=== PATIENT | male | born 1985 | race African-American/Black ===

== ENCOUNTER 2020-12-10 17:05 | Inpatient (IN) | payer OTHER ==
[~2020-12-10] VITALS: Ht 182.9 cm; Wt 114.8 kg
[2020-12-10] MEDS ORDERED: DexAMETHasone SOD PHOS 10MG/1ML VIAL INJ IV ONE (17:45)
[2020-12-10] MEDS ORDERED: cefTRIAXone 1GM/50ML D5W 50 ML IV ONE (17:45)
[2020-12-10] MEDS ORDERED: ACETAMINOPHEN 650 mg PER 20.3 mL UD PO ONE (18:00)
[2020-12-10 18:10] LABS: Basophils # (auto) 0 10 ^3/uL (0-0.2); Basophils % (auto) 0.3 % (0.0-2.0); Eosinophils # (auto) 0 10 ^3/uL (0-0.8); Hematocrit 42.9 % (41.0-53.0); Hemoglobin 14.3 g/dL (13.5-17.5); Lymphocytes # (auto) 1.5 10 ^3/uL (0.4-5.4); Lymphocytes % (auto) 15.8 % (10.0-50.0); Mean Corpuscular Hemoglobin 28.5 pg (28.0-32.0); Mean Corpuscular Hgb Conc. 33.3 g/dL (32.0-36.0); Mean Corpuscular Volume 85.7 fL (80.0-100.0); Monocytes # (auto) 0.5 10 ^3/uL (0-1.3); Monocytes % (auto) 5.3 % (0.0-12.0); Neutrophils # (auto) 7.3 10 ^3/uL (1.6-8.6); Neutrophils % (auto) 78.6 % (37.0-80.0); Nucleated Red Blood Cells % 0.1 %; Red Blood Cells 5.01 10^6/uL (4.5-5.90); Red Cell Distribution Width 15.9 % (11.8-14.3); White Blood Cell 9.4 10^3/uL (4.4-10.8)
[2020-12-10 18:19] LABS: Calcium 8.1 mg/dL (8.5-10.1); Chloride 93 mmol/L (98-107); Sodium 131 mmol/L (136-145)
[2020-12-10 18:27] LABS: Alanine Aminotransferase 47 U/L (16-61); Albumin 3.2 g/dL (3.4-5.0); Alkaline Phosphatase 49 U/L (45-117); Anion Gap 9 (5-15); Aspartate Aminotransferase 72 U/L (15-37); BUN/Creatinine Ratio 7.7; Bilirubin, Total 0.8 mg/dL (0.2-1.0); Blood Urea Nitrogen 11 mg/dL (7-18); Carbon Dioxide 29 mmol/L (21-32); GFR African American 72 mL/min; GFR Non-African American 59 mL/min; Glucose 149 mg/dL (74-106); Total Protein 7.9 g/dL (6.4-8.2)
[2020-12-10 18:33] LABS: Potassium 2.8 mmol/L (3.5-5.1)
[2020-12-10] MEDS ORDERED: POTASSIUM CHL 20 Meq TABLET PO ONE (19:00)
[2020-12-10] MEDS ORDERED: ACETAMINOPHEN 325 MG TAB PO ONE (19:15)
[2020-12-10 20:33] LABS: Urine Bacteria NONE SEEN /hpf (None Seen); Urine Blood 2+ /uL (Negative); Urine Specific Gravity 1.009 (1.001-1.035); Urine WBC 2 /hpf (0 - 3)
[2020-12-10] MEDS ORDERED: NITROGLYCERIN 0.4 MG SL TAB SL PRN (21:30)
[2020-12-10] MEDS ORDERED: SODIUM CHLORIDE 0.9% 500 ML IV ONE (21:30)
[2020-12-10] MEDS ORDERED: MORPHINE SULFATE INJECTION 2 MG/ML SYRG IV PRN (21:30)
[2020-12-10] MEDS ORDERED: AZITHROMYCIN 500MG/ 250ML 250 ML IV ONE (21:30)
[2020-12-10] MEDS ORDERED: ONDANSETRON HCL 4 MG/2 ML VIAL IV PRN (21:30)
[2020-12-10] MEDS ORDERED: TEMAZEPAM 15 MG CAP PO PRN (21:30)
[2020-12-10] MEDS: SODIUM CHLORIDE 0.9% 1,000 ML IV SCH (22:00)
[2020-12-10] MEDS: ENOXAPARIN SOD 40 MG/0.4 ML SYRINGE SC SCH (22:05)
[2020-12-10 22:15] LABS: Magnesium 2.6 mg/dL (1.6-2.6)
[2020-12-10 22:24] LABS: CRP High Sensitivity 14.4 mg/dL (< 0.3)
[2020-12-11 00:52] VITALS: BP 130/52
[2020-12-11 05:19] LABS: Basophils # (auto) 0.1 10 ^3/uL (0-0.2); Basophils % (auto) 0.5 % (0.0-2.0); Eosinophils # (auto) 0 10 ^3/uL (0-0.8); Hematocrit 45.5 % (41.0-53.0); Hemoglobin 15.4 g/dL (13.5-17.5); Lymphocytes # (auto) 1.4 10 ^3/uL (0.4-5.4); Mean Corpuscular Hemoglobin 29.3 pg (28.0-32.0); Mean Corpuscular Hgb Conc. 33.8 g/dL (32.0-36.0); Mean Corpuscular Volume 86.7 fL (80.0-100.0); Monocytes # (auto) 0.5 10 ^3/uL (0-1.3); Monocytes % (auto) 4.1 % (0.0-12.0); Neutrophils # (auto) 9.6 10 ^3/uL (1.6-8.6); Neutrophils % (auto) 83.4 % (37.0-80.0); Red Blood Cells 5.25 10^6/uL (4.5-5.90); White Blood Cell 11.5 10^3/uL (4.4-10.8)
[2020-12-11 06:01] LABS: Albumin 3.4 g/dL (3.4-5.0); BUN/Creatinine Ratio 8.4; Bilirubin, Total 0.6 mg/dL (0.2-1.0); Calcium 9.1 mg/dL (8.5-10.1); Potassium 4.2 mmol/L (3.5-5.1); Total Protein 8.7 g/dL (6.4-8.2)
[2020-12-11] MEDS: DexAMETHasone SOD PHOS 10MG/1ML VIAL INJ IV SCH (09:37)
[2020-12-11] MEDS: ZINC SULFATE 220mg CAP or TAB PO SCH (09:37)
[2020-12-11] MEDS: CHOLECALCIFEROL (VITD3) 2,000 UNIT CAP/TAB PO SCH (09:38)
[2020-12-11] MEDS: ENOXAPARIN SOD 40 MG/0.4 ML SYRINGE SC SCH (09:38)
[2020-12-11] MEDS: ASCORBIC ACID 1,000 MG TAB PO SCH (09:38)
[2020-12-11] MEDS ORDERED: PANTOPRAZOLE 40 MG TAB PO SCH (10:00)
[2020-12-11] MEDS: ACETAMINOPHEN 500 MG TAB PO PRN (10:44)
[2020-12-11] MEDS: ALBUTEROL SULF HFA 90MCG INH 200DOSE IN PRN ×2 (11:06→21:16)
[2020-12-11] MEDS: SODIUM CHLORIDE 0.9% 1,000 ML IV SCH (11:09)
[2020-12-11] MEDS ORDERED: FAMOTIDINE (10MG/ML) 2ML VL IV ONE ×2 (16:00→17:02)
[2020-12-11] MEDS ORDERED: ENOXAPARIN SOD 80 MG/0.8ML SYRINGE SC ONE (16:15)
[2020-12-11] MEDS ORDERED: REMDESIVIR PER PHARMACY 0 ML IV SCH (16:15)
[2020-12-11] MEDS ORDERED: DOXYCYCLINE 100MG/250ML 250 ML IV ONE ×2 (16:15→17:01)
[2020-12-11] MEDS ORDERED: FUROSEMIDE 20 MG/2 ML VIAL IV ONE (16:15)
[2020-12-11] MEDS ORDERED: FUROSEMIDE 20 MG/2 ML VIAL ONE (17:00)
[2020-12-11] MEDS ORDERED: REMDESIVIR 200 MG in NS 210ml LOADING DOSE ADULT IV ONE (18:00)
[2020-12-11 18:13] LABS: Basophils # (auto) 0 10 ^3/uL (0-0.2); Basophils % (auto) 0.1 % (0.0-2.0); Eosinophils # (auto) 0 10 ^3/uL (0-0.8); Hematocrit 43.3 % (41.0-53.0); Hemoglobin 14.1 g/dL (13.5-17.5); Lymphocytes # (auto) 1.1 10 ^3/uL (0.4-5.4); Mean Corpuscular Hemoglobin 28.2 pg (28.0-32.0); Mean Corpuscular Hgb Conc. 32.5 g/dL (32.0-36.0); Mean Corpuscular Volume 86.7 fL (80.0-100.0); Monocytes # (auto) 0.3 10 ^3/uL (0-1.3); Monocytes % (auto) 2.3 % (0.0-12.0); Neutrophils # (auto) 12.8 10 ^3/uL (1.6-8.6); Neutrophils % (auto) 89.6 % (37.0-80.0); Nucleated Red Blood Cells % 0.1 %; Red Cell Distribution Width 15.7 % (11.8-14.3); White Blood Cell 14.3 10^3/uL (4.4-10.8)
[2020-12-11 18:31] LABS: Albumin 2.9 g/dL (3.4-5.0); Calcium 8.8 mg/dL (8.5-10.1); Potassium 3.5 mmol/L (3.5-5.1)
[2020-12-11 18:39] LABS: BUN/Creatinine Ratio 12.3; Bilirubin, Total 0.7 mg/dL (0.2-1.0); CRP High Sensitivity 18.2 mg/dL (< 0.3)
[2020-12-11 18:42] LABS: Thyroid Stimulating Hormone 0.66 uIU/mL (0.358-3.74)
[2020-12-11] MEDS ORDERED: TOCILIZUMAB 400 MG in SODIUM CHL 0.9% 80 ML IV SCH (22:00)
[2020-12-11] MEDS ORDERED: AZITHROMYCIN 500MG/ 250ML 250 ML IV SCH (22:00)
[2020-12-11 22:08] VITALS: BP 137/88
[2020-12-11] MEDS: POTASSIUM CHL 20 Meq TABLET PO SCH (22:27)
[2020-12-11] MEDS: FLORASTOR (S. BOULARDII) 250 MG CAP PO SCH (22:27)
[2020-12-11] MEDS: ENOXAPARIN SOD 120 MG/0.8 ML SYRINGE SC SCH (22:27)
[2020-12-12] MEDS: SODIUM CHLORIDE 0.9% 1,000 ML IV SCH ×3 (00:10→21:30)
[2020-12-12 01:43] VITALS: BP 129/75
[2020-12-12] MEDS: DOXYCYCLINE 100MG/250ML 250 ML IV SCH ×2 (04:00→16:30)
[2020-12-12 04:55] LABS: Basophils # (auto) 0 10 ^3/uL (0-0.2); Basophils % (auto) 0.2 % (0.0-2.0); Eosinophils # (auto) 0 10 ^3/uL (0-0.8); Hematocrit 43.3 % (41.0-53.0); Hemoglobin 14.3 g/dL (13.5-17.5); Lymphocytes # (auto) 1.4 10 ^3/uL (0.4-5.4); Lymphocytes % (auto) 9.7 % (10.0-50.0); Mean Corpuscular Hemoglobin 28.7 pg (28.0-32.0); Mean Corpuscular Volume 86.9 fL (80.0-100.0); Monocytes # (auto) 0.5 10 ^3/uL (0-1.3); Monocytes % (auto) 3.3 % (0.0-12.0); Neutrophils # (auto) 12.3 10 ^3/uL (1.6-8.6); Neutrophils % (auto) 86.8 % (37.0-80.0); Nucleated Red Blood Cells % 0.1 %; Red Blood Cells 4.98 10^6/uL (4.5-5.90); Red Cell Distribution Width 15.9 % (11.8-14.3); White Blood Cell 14.2 10^3/uL (4.4-10.8)
[2020-12-12 05:09] LABS: INR 1.06 (0.9-1.15); Partial Thromboplastin Time 37.1 sec (23.6-33.0)
[2020-12-12 05:16] LABS: Albumin 2.9 g/dL (3.4-5.0); Anion Gap 9 (5-15); Blood Urea Nitrogen 19 mg/dL (7-18); Calcium 8.4 mg/dL (8.5-10.1); Carbon Dioxide 33 mmol/L (21-32); Chloride 95 mmol/L (98-107); Glucose 123 mg/dL (74-106); Magnesium 2.8 mg/dL (1.6-2.6); Phosphorus 2.1 mg/dL (2.5-4.90); Potassium 3.3 mmol/L (3.5-5.1); Sodium 137 mmol/L (136-145)
[2020-12-12 05:26] LABS: Alanine Aminotransferase 49 U/L (16-61); Alkaline Phosphatase 56 U/L (45-117); Aspartate Aminotransferase 49 U/L (15-37); BUN/Creatinine Ratio 13.1; Bilirubin, Total 0.8 mg/dL (0.2-1.0); Cholesterol 132 mg/dL (< 200); Creatine Kinase IFCC 693 U/L (39-308); GFR African American 71 mL/min; GFR Non-African American 59 mL/min; HDL Cholesterol 30 mg/dL (40-59); LDL Cholesterol 83 mg/dL (< 100); Total Protein 8.1 g/dL (6.4-8.2); Triglycerides 124 mg/dL (< 150); Uric Acid 7.7 mg/dL (3.5-7.2)
[2020-12-12 05:55] VITALS: BP 141/87
[2020-12-12] MEDS: ALBUTEROL SULF HFA 90MCG INH 200DOSE IN PRN (05:55)
[2020-12-12] MEDS: FUROSEMIDE 20 MG/2 ML VIAL IV SCH ×2 (06:26→17:48)
[2020-12-12 08:30] VITALS: BP 139/82
[2020-12-12] MEDS: DexAMETHasone SOD PHOS 10MG/1ML VIAL INJ IV SCH (10:00)
[2020-12-12] MEDS: ZINC SULFATE 220mg CAP or TAB PO SCH (10:30)
[2020-12-12] MEDS: FLORASTOR (S. BOULARDII) 250 MG CAP PO SCH ×2 (10:30→21:30)
[2020-12-12] MEDS: CHOLECALCIFEROL (VITD3) 2,000 UNIT CAP/TAB PO SCH (10:30)
[2020-12-12] MEDS: ENOXAPARIN SOD 120 MG/0.8 ML SYRINGE SC SCH (10:30)
[2020-12-12] MEDS: POTASSIUM CHL 20 Meq TABLET PO SCH ×2 (10:30→21:30)
[2020-12-12] MEDS: IVERMECTIN 3 MG TAB PO SCH (10:30)
[2020-12-12] MEDS: FAMOTIDINE (10MG/ML) 2ML VL IV SCH ×2 (10:30→21:29)
[2020-12-12] MEDS: ASCORBIC ACID 1,000 MG TAB PO SCH (10:30)
[2020-12-12 10:41] VITALS: BP 137/82
[2020-12-12] MEDS ORDERED: POTASSIUM CHLORIDE 40 MEQ, LIDOCAINE 1% (LOCAL ANESTH.) 4 ML in SODIUM CHL 0.9% 250 ML IV ONE (12:15)
[2020-12-12] MEDS: REMDESIVIR 100mg 100 MG in SODIUM CHL 0.9% 230 ML IV SCH (15:02)
[2020-12-12 15:15] VITALS: BP 104/69
[2020-12-12 16:09] LABS: Urine Bacteria NONE SEEN /hpf (None Seen); Urine Blood Negative /uL (Negative); Urine Mucus FEW (None Seen); Urine Specific Gravity 1.022 (1.001-1.035); Urine WBC 1 /hpf (0 - 3)
[2020-12-13] MEDS: DOXYCYCLINE 100MG/250ML 250 ML IV SCH ×2 (03:20→19:05)
[2020-12-13 05:06] LABS: Albumin 2.6 g/dL (3.4-5.0); Calcium 9.1 mg/dL (8.5-10.1); Potassium 4.4 mmol/L (3.5-5.1)
[2020-12-13 05:10] LABS: BUN/Creatinine Ratio 18.7; Bilirubin, Total 0.8 mg/dL (0.2-1.0)
[2020-12-13 05:11] LABS: Basophils # (auto) 0 10 ^3/uL (0-0.2); Basophils % (auto) 0.2 % (0.0-2.0); Eosinophils # (auto) 0 10 ^3/uL (0-0.8); Hematocrit 42.5 % (41.0-53.0); Hemoglobin 14.4 g/dL (13.5-17.5); Lymphocytes # (auto) 1.2 10 ^3/uL (0.4-5.4); Lymphocytes % (auto) 10.3 % (10.0-50.0); Mean Corpuscular Hemoglobin 29.7 pg (28.0-32.0); Mean Corpuscular Hgb Conc. 33.8 g/dL (32.0-36.0); Mean Corpuscular Volume 87.7 fL (80.0-100.0); Monocytes # (auto) 0.5 10 ^3/uL (0-1.3); Monocytes % (auto) 4.8 % (0.0-12.0); Neutrophils # (auto) 9.6 10 ^3/uL (1.6-8.6); Neutrophils % (auto) 84.7 % (37.0-80.0); Nucleated Red Blood Cells % 0.4 %; Red Blood Cells 4.85 10^6/uL (4.5-5.90); Red Cell Distribution Width 15.8 % (11.8-14.3); White Blood Cell 11.3 10^3/uL (4.4-10.8)
[2020-12-13] MEDS: FUROSEMIDE 20 MG/2 ML VIAL IV SCH ×2 (05:17→19:05)
[2020-12-13 06:30] VITALS: BP 118/65
[2020-12-13 10:00] VITALS: BP 100/56
[2020-12-13] MEDS: ASCORBIC ACID 1,000 MG TAB PO SCH (10:21)
[2020-12-13] MEDS: DexAMETHasone SOD PHOS 10MG/1ML VIAL INJ IV SCH (10:21)
[2020-12-13] MEDS: ENOXAPARIN SOD 60 MG/0.6 ML SYRINGE SC SCH (10:21)
[2020-12-13] MEDS: FAMOTIDINE (10MG/ML) 2ML VL IV SCH ×2 (10:21→22:25)
[2020-12-13] MEDS: CHOLECALCIFEROL (VITD3) 2,000 UNIT CAP/TAB PO SCH (10:21)
[2020-12-13] MEDS: FLORASTOR (S. BOULARDII) 250 MG CAP PO SCH (10:21)
[2020-12-13] MEDS: ZINC SULFATE 220mg CAP or TAB PO SCH (10:21)
[2020-12-13] MEDS: IVERMECTIN 3 MG TAB PO SCH (10:21)
[2020-12-13] MEDS: REMDESIVIR 100mg 100 MG in SODIUM CHL 0.9% 230 ML IV SCH (15:23)
[2020-12-14] VITALS (7 sets, daily range): BP systolic 106–126; BP diastolic 59–83
[2020-12-14] MEDS: DOXYCYCLINE 100MG/250ML 250 ML IV SCH ×2 (04:04→18:29)
[2020-12-14 05:37] LABS: Albumin 2.6 g/dL (3.4-5.0); Potassium 3.8 mmol/L (3.5-5.1)
[2020-12-14 05:48] LABS: Bilirubin, Total 0.7 mg/dL (0.2-1.0); CRP High Sensitivity 9.3 mg/dL (< 0.3); Total Protein 7.4 g/dL (6.4-8.2)
[2020-12-14 05:49] LABS: Basophils # (auto) 0 10 ^3/uL (0-0.2); Basophils % (auto) 0.4 % (0.0-2.0); Eosinophils # (auto) 0 10 ^3/uL (0-0.8); Eosinophils % (auto) 0.1 % (0.0-7.0); Hemoglobin 13.9 g/dL (13.5-17.5); Lymphocytes # (auto) 1.7 10 ^3/uL (0.4-5.4); Lymphocytes % (auto) 18.2 % (10.0-50.0); Mean Corpuscular Hemoglobin 29.7 pg (28.0-32.0); Mean Corpuscular Hgb Conc. 33.9 g/dL (32.0-36.0); Mean Corpuscular Volume 87.8 fL (80.0-100.0); Monocytes # (auto) 0.4 10 ^3/uL (0-1.3); Monocytes % (auto) 4.6 % (0.0-12.0); Neutrophils # (auto) 7.2 10 ^3/uL (1.6-8.6); Neutrophils % (auto) 76.7 % (37.0-80.0); Nucleated Red Blood Cells % 0.1 %; Red Blood Cells 4.67 10^6/uL (4.5-5.90); Red Cell Distribution Width 15.8 % (11.8-14.3); White Blood Cell 9.4 10^3/uL (4.4-10.8)
[2020-12-14] MEDS: FUROSEMIDE 20 MG/2 ML VIAL IV SCH ×2 (06:36→18:29)
[2020-12-14 06:57] LABS: BUN/Creatinine Ratio 24.6
[2020-12-14] MEDS: DexAMETHasone SOD PHOS 10MG/1ML VIAL INJ IV SCH (09:23)
[2020-12-14] MEDS: ENOXAPARIN SOD 60 MG/0.6 ML SYRINGE SC SCH (09:23)
[2020-12-14] MEDS: IVERMECTIN 3 MG TAB PO SCH (09:23)
[2020-12-14] MEDS: CHOLECALCIFEROL (VITD3) 2,000 UNIT CAP/TAB PO SCH (09:23)
[2020-12-14] MEDS: ZINC SULFATE 220mg CAP or TAB PO SCH (09:23)
[2020-12-14] MEDS: ASCORBIC ACID 1,000 MG TAB PO SCH (09:23)
[2020-12-14] MEDS: FAMOTIDINE (10MG/ML) 2ML VL IV SCH ×2 (09:23→23:00)
[2020-12-14] MEDS: REMDESIVIR 100mg 100 MG in SODIUM CHL 0.9% 230 ML IV SCH (15:53)
[2020-12-14] MEDS: ALBUTEROL SULF HFA 90MCG INH 200DOSE IN PRN (20:51)
[2020-12-15] VITALS (8 sets, daily range): BP systolic 95–133; BP diastolic 65–83
[2020-12-15] MEDS: DOXYCYCLINE 100MG/250ML 250 ML IV SCH ×2 (04:10→17:37)
[2020-12-15] MEDS: FUROSEMIDE 20 MG/2 ML VIAL IV SCH ×2 (06:30→18:16)
[2020-12-15 06:49] LABS: Basophils # (auto) 0 10 ^3/uL (0-0.2); Basophils % (auto) 0.2 % (0.0-2.0); Eosinophils # (auto) 0.1 10 ^3/uL (0-0.8); Hemoglobin 14.4 g/dL (13.5-17.5); Lymphocytes # (auto) 1.9 10 ^3/uL (0.4-5.4); Monocytes # (auto) 0.5 10 ^3/uL (0-1.3)
[2020-12-15 06:51] LABS: Albumin 2.7 g/dL (3.4-5.0); Calcium 8.9 mg/dL (8.5-10.1); Potassium 3.7 mmol/L (3.5-5.1)
[2020-12-15 06:52] LABS: Eosinophils % (auto) 0.8 % (0.0-7.0); Hematocrit 43.1 % (41.0-53.0); Lymphocytes % (auto) 20.5 % (10.0-50.0); Mean Corpuscular Hemoglobin 29.3 pg (28.0-32.0); Mean Corpuscular Hgb Conc. 33.4 g/dL (32.0-36.0); Mean Corpuscular Volume 87.8 fL (80.0-100.0); Monocytes % (auto) 4.9 % (0.0-12.0); Neutrophils # (auto) 6.8 10 ^3/uL (1.6-8.6); Neutrophils % (auto) 73.6 % (37.0-80.0); Nucleated Red Blood Cells % 0.2 %; Red Blood Cells 4.91 10^6/uL (4.5-5.90); Red Cell Distribution Width 15.6 % (11.8-14.3); White Blood Cell 9.3 10^3/uL (4.4-10.8)
[2020-12-15 07:00] LABS: BUN/Creatinine Ratio 22.7; Bilirubin, Total 0.8 mg/dL (0.2-1.0); CRP High Sensitivity 5.51 mg/dL (< 0.3); Total Protein 7.5 g/dL (6.4-8.2)
[2020-12-15] MEDS: DexAMETHasone SOD PHOS 10MG/1ML VIAL INJ IV SCH (09:46)
[2020-12-15] MEDS: IVERMECTIN 3 MG TAB PO SCH (09:47)
[2020-12-15] MEDS: ASCORBIC ACID 1,000 MG TAB PO SCH (09:47)
[2020-12-15] MEDS: FAMOTIDINE (10MG/ML) 2ML VL IV SCH ×2 (09:47→23:25)
[2020-12-15] MEDS: ZINC SULFATE 220mg CAP or TAB PO SCH (09:47)
[2020-12-15] MEDS: CHOLECALCIFEROL (VITD3) 2,000 UNIT CAP/TAB PO SCH (09:47)
[2020-12-15] MEDS: ENOXAPARIN SOD 60 MG/0.6 ML SYRINGE SC SCH (09:48)
[2020-12-15] MEDS: REMDESIVIR 100mg 100 MG in SODIUM CHL 0.9% 230 ML IV SCH (15:03)
[2020-12-16] VITALS (20 sets, daily range): BP systolic 93–131; BP diastolic 58–85
[2020-12-16] MEDS: ALBUTEROL SULF HFA 90MCG INH 200DOSE IN PRN ×2 (03:29→10:25)
[2020-12-16] MEDS: DOXYCYCLINE 100MG/250ML 250 ML IV SCH ×2 (04:31→16:23)
[2020-12-16 05:17] LABS: Basophils # (auto) 0 10 ^3/uL (0-0.2); Eosinophils # (auto) 0.2 10 ^3/uL (0-0.8); White Blood Cell 10.6 10^3/uL (4.4-10.8)
[2020-12-16 05:20] LABS: Basophils % (auto) 0.2 % (0.0-2.0); Hematocrit 41.1 % (41.0-53.0); Hemoglobin 13.6 g/dL (13.5-17.5); Lymphocytes % (auto) 18.8 % (10.0-50.0); Mean Corpuscular Hemoglobin 29.2 pg (28.0-32.0); Mean Corpuscular Hgb Conc. 33.2 g/dL (32.0-36.0); Mean Corpuscular Volume 87.9 fL (80.0-100.0); Monocytes # (auto) 0.7 10 ^3/uL (0-1.3); Monocytes % (auto) 6.5 % (0.0-12.0); Neutrophils # (auto) 7.7 10 ^3/uL (1.6-8.6); Neutrophils % (auto) 72.5 % (37.0-80.0); Red Blood Cells 4.68 10^6/uL (4.5-5.90); Red Cell Distribution Width 15.8 % (11.8-14.3)
[2020-12-16 05:32] LABS: Potassium 3.8 mmol/L (3.5-5.1)
[2020-12-16 05:36] LABS: BUN/Creatinine Ratio 20.6; Calcium 9.1 mg/dL (8.5-10.1)
[2020-12-16] MEDS: FUROSEMIDE 20 MG/2 ML VIAL IV SCH ×2 (07:58→17:54)
[2020-12-16] MEDS: ZINC SULFATE 220mg CAP or TAB PO SCH (10:54)
[2020-12-16] MEDS: ASCORBIC ACID 1,000 MG TAB PO SCH (10:54)
[2020-12-16] MEDS: FAMOTIDINE (10MG/ML) 2ML VL IV SCH ×2 (10:55→22:50)
[2020-12-16] MEDS: DexAMETHasone SOD PHOS 10MG/1ML VIAL INJ IV SCH (10:55)
[2020-12-16] MEDS: ENOXAPARIN SOD 60 MG/0.6 ML SYRINGE SC SCH (10:55)
[2020-12-16] MEDS: IVERMECTIN 3 MG TAB PO SCH (10:55)
[2020-12-16] MEDS: CHOLECALCIFEROL (VITD3) 2,000 UNIT CAP/TAB PO SCH (11:14)
[2020-12-16] MEDS: ACETAMINOPHEN 500 MG TAB PO PRN (11:15)
[2020-12-17] VITALS (23 sets, daily range): BP systolic 78–127; BP diastolic 37–84
[2020-12-17] MEDS: DOXYCYCLINE 100MG/250ML 250 ML IV SCH ×2 (04:50→16:22)
[2020-12-17 05:50] LABS: Calcium 9.6 mg/dL (8.5-10.1); Potassium 3.9 mmol/L (3.5-5.1)
[2020-12-17 05:59] LABS: BUN/Creatinine Ratio 26.8; CRP High Sensitivity 5.67 mg/dL (< 0.3)
[2020-12-17] MEDS: FUROSEMIDE 20 MG/2 ML VIAL IV SCH ×3 (07:58→18:24)
[2020-12-17] MEDS: FAMOTIDINE (10MG/ML) 2ML VL IV SCH ×2 (10:42→23:01)
[2020-12-17] MEDS: CHOLECALCIFEROL (VITD3) 2,000 UNIT CAP/TAB PO SCH (10:43)
[2020-12-17] MEDS: ENOXAPARIN SOD 60 MG/0.6 ML SYRINGE SC SCH (10:43)
[2020-12-17] MEDS: DexAMETHasone SOD PHOS 10MG/1ML VIAL INJ IV SCH (10:43)
[2020-12-17] MEDS: ZINC SULFATE 220mg CAP or TAB PO SCH (10:43)
[2020-12-17] MEDS: ASCORBIC ACID 1,000 MG TAB PO SCH (10:44)
[2020-12-18] VITALS (12 sets, daily range): BP systolic 97–117; BP diastolic 58–79
[2020-12-18] MEDS: DOXYCYCLINE 100MG/250ML 250 ML IV SCH ×2 (04:00→16:00)
[2020-12-18 05:44] LABS: BUN/Creatinine Ratio 32.7; Calcium 9.2 mg/dL (8.5-10.1); Magnesium 2.8 mg/dL (1.6-2.6); Potassium 4.1 mmol/L (3.5-5.1)
[2020-12-18] MEDS: FUROSEMIDE 20 MG/2 ML VIAL IV SCH ×2 (06:00→18:15)
[2020-12-18] MEDS: FAMOTIDINE (10MG/ML) 2ML VL IV SCH ×2 (09:35→21:21)
[2020-12-18] MEDS: DexAMETHasone SOD PHOS 10MG/1ML VIAL INJ IV SCH (09:35)
[2020-12-18] MEDS: CHOLECALCIFEROL (VITD3) 2,000 UNIT CAP/TAB PO SCH (09:36)
[2020-12-18] MEDS: ZINC SULFATE 220mg CAP or TAB PO SCH (09:36)
[2020-12-18] MEDS: ENOXAPARIN SOD 60 MG/0.6 ML SYRINGE SC SCH (09:36)
[2020-12-18] MEDS: ASCORBIC ACID 1,000 MG TAB PO SCH (09:36)
[2020-12-18] MEDS ORDERED: TOCILIZUMAB 400 MG in SODIUM CHL 0.9% 80 ML IV ONE (15:00)
[2020-12-19] VITALS: BP 117/68
[2020-12-19 04:00] VITALS: BP 109/64
[2020-12-19] MEDS: DOXYCYCLINE 100MG/250ML 250 ML IV SCH ×3 (04:00→18:04)
[2020-12-19 05:43] LABS: Chloride 100 mmol/L (98-107); Potassium 4.3 mmol/L (3.5-5.1); Sodium 136 mmol/L (136-145)
[2020-12-19 05:45] LABS: Eosinophils # (auto) 0.1 10 ^3/uL (0-0.8); Lymphocytes # (auto) 2.4 10 ^3/uL (0.4-5.4); Nucleated Red Blood Cells % 0.1 %; Red Blood Cells 5.05 10^6/uL (4.5-5.90)
[2020-12-19 05:46] LABS: Anion Gap 11 (5-15); BUN/Creatinine Ratio 29.4; Basophils # (auto) 0.1 10 ^3/uL (0-0.2); Basophils % (auto) 0.7 % (0.0-2.0); Blood Urea Nitrogen 32 mg/dL (7-18); Carbon Dioxide 25 mmol/L (21-32); Eosinophils % (auto) 1.3 % (0.0-7.0); GFR African American 98 mL/min; GFR Non-African American 81 mL/min; Glucose 195 mg/dL (74-106); Hematocrit 44.6 % (41.0-53.0); Lymphocytes % (auto) 27.2 % (10.0-50.0); Mean Corpuscular Hemoglobin 29.8 pg (28.0-32.0); Mean Corpuscular Hgb Conc. 33.7 g/dL (32.0-36.0); Mean Corpuscular Volume 88.4 fL (80.0-100.0); Monocytes # (auto) 0.8 10 ^3/uL (0-1.3); Monocytes % (auto) 8.6 % (0.0-12.0); Neutrophils # (auto) 5.5 10 ^3/uL (1.6-8.6); Neutrophils % (auto) 62.2 % (37.0-80.0); Red Cell Distribution Width 15.3 % (11.8-14.3); White Blood Cell 8.8 10^3/uL (4.4-10.8)
[2020-12-19] MEDS: FUROSEMIDE 20 MG/2 ML VIAL IV SCH ×2 (06:10→18:05)
[2020-12-19] MEDS ORDERED: TOCILIZUMAB 400 MG in SODIUM CHL 0.9% 80 ML IV ONE (09:00)
[2020-12-19] MEDS: ENOXAPARIN SOD 60 MG/0.6 ML SYRINGE SC SCH (09:48)
[2020-12-19] MEDS: DexAMETHasone SOD PHOS 10MG/1ML VIAL INJ IV SCH (09:48)
[2020-12-19] MEDS: FAMOTIDINE (10MG/ML) 2ML VL IV SCH ×2 (09:48→21:49)
[2020-12-19] MEDS: ASCORBIC ACID 1,000 MG TAB PO SCH (09:48)
[2020-12-19] MEDS: CHOLECALCIFEROL (VITD3) 2,000 UNIT CAP/TAB PO SCH (09:48)
[2020-12-19] MEDS: ZINC SULFATE 220mg CAP or TAB PO SCH (09:48)
[2020-12-19 10:00] VITALS: BP 120/77
[2020-12-19 14:00] VITALS: BP 119/74
[2020-12-19 18:00] VITALS: BP 121/83
[2020-12-19] MEDS: ALBUTEROL SULF HFA 90MCG INH 200DOSE IN PRN (19:04)
[2020-12-19 20:00] VITALS: BP 108/69
[2020-12-20] VITALS (9 sets, daily range): BP systolic 103–126; BP diastolic 53–85
[2020-12-20] MEDS: DOXYCYCLINE 100MG/250ML 250 ML IV SCH (04:00)
[2020-12-20 05:35] LABS: Anion Gap 5 (5-15); BUN/Creatinine Ratio 27.9; Blood Urea Nitrogen 31 mg/dL (7-18); Calcium 9.2 mg/dL (8.5-10.1); Carbon Dioxide 28 mmol/L (21-32); Chloride 100 mmol/L (98-107); GFR African American 96 mL/min; GFR Non-African American 80 mL/min; Glucose 215 mg/dL (74-106); Potassium 5.3 mmol/L (3.5-5.1); Sodium 133 mmol/L (136-145)
[2020-12-20] MEDS: FUROSEMIDE 20 MG/2 ML VIAL IV SCH ×2 (05:44→18:10)
[2020-12-20 05:53] LABS: Hematocrit 47.6 % (41.0-53.0); Hemoglobin 15.7 g/dL (13.5-17.5); Mean Corpuscular Volume 87.8 fL (80.0-100.0); Red Blood Cells 5.42 10^6/uL (4.5-5.90); Red Cell Distribution Width 15.4 % (11.8-14.3); White Blood Cell 10.4 10^3/uL (4.4-10.8)
[2020-12-20 05:55] LABS: Band Neutrophils % (manual) 0; Basophils % (manual) 0 (0.0-2.0); Blast Cells 0; Eosinophils % (manual) 0 (0-7); Metamyelocytes % 0; Myelocytes % 0; Promyelocytes % 0; Reactive Lymphocytes 0
[2020-12-20 06:55] LABS: Lymphocytes % (manual) 40 (10.0-50.0); Monocytes % (manual) 7 (0-12)
[2020-12-20] MEDS: FAMOTIDINE (10MG/ML) 2ML VL IV SCH ×2 (10:20→21:45)
[2020-12-20] MEDS: DexAMETHasone SOD PHOS 10MG/1ML VIAL INJ IV SCH (10:20)
[2020-12-20] MEDS: ASCORBIC ACID 1,000 MG TAB PO SCH (10:21)
[2020-12-20] MEDS: ENOXAPARIN SOD 60 MG/0.6 ML SYRINGE SC SCH (10:21)
[2020-12-20] MEDS: CHOLECALCIFEROL (VITD3) 2,000 UNIT CAP/TAB PO SCH (10:21)
[2020-12-20] MEDS: ZINC SULFATE 220mg CAP or TAB PO SCH (10:21)
[2020-12-20] MEDS: ACETAMINOPHEN 500 MG TAB PO PRN (16:53)
[2020-12-20] MEDS: ALBUTEROL SULF HFA 90MCG INH 200DOSE IN PRN (22:01)
[2020-12-21 05:30] VITALS: BP 126/75
[2020-12-21 05:44] LABS: Basophils # (auto) 0.1 10 ^3/uL (0-0.2); Eosinophils # (auto) 0.1 10 ^3/uL (0-0.8)
[2020-12-21 05:48] LABS: Basophils % (auto) 0.9 % (0.0-2.0); Eosinophils % (auto) 0.6 % (0.0-7.0); Hematocrit 46.6 % (41.0-53.0); Hemoglobin 15.3 g/dL (13.5-17.5); Lymphocytes # (auto) 3.3 10 ^3/uL (0.4-5.4); Lymphocytes % (auto) 31.4 % (10.0-50.0); Mean Corpuscular Hemoglobin 28.9 pg (28.0-32.0); Mean Corpuscular Hgb Conc. 32.9 g/dL (32.0-36.0); Mean Corpuscular Volume 87.9 fL (80.0-100.0); Monocytes # (auto) 0.8 10 ^3/uL (0-1.3); Monocytes % (auto) 7.2 % (0.0-12.0); Neutrophils # (auto) 6.3 10 ^3/uL (1.6-8.6); Neutrophils % (auto) 59.9 % (37.0-80.0); Nucleated Red Blood Cells % 0.1 %; White Blood Cell 10.5 10^3/uL (4.4-10.8)
[2020-12-21] MEDS: FUROSEMIDE 20 MG/2 ML VIAL IV SCH ×2 (05:49→17:59)
[2020-12-21 06:24] LABS: BUN/Creatinine Ratio 29.1; Potassium 4.3 mmol/L (3.5-5.1)
[2020-12-21 06:25] LABS: Calcium 9.4 mg/dL (8.5-10.1)
[2020-12-21] MEDS: ZINC SULFATE 220mg CAP or TAB PO SCH (09:54)
[2020-12-21] MEDS: FAMOTIDINE (10MG/ML) 2ML VL IV SCH ×2 (09:54→22:06)
[2020-12-21] MEDS: CHOLECALCIFEROL (VITD3) 2,000 UNIT CAP/TAB PO SCH (10:00)
[2020-12-21] MEDS: ENOXAPARIN SOD 60 MG/0.6 ML SYRINGE SC SCH (10:00)
[2020-12-21] MEDS: ASCORBIC ACID 1,000 MG TAB PO SCH (10:00)
[2020-12-21 13:00] VITALS: BP 118/77
[2020-12-21 17:00] VITALS: BP 127/73
[2020-12-21] MEDS: ALBUTEROL SULF HFA 90MCG INH 200DOSE IN PRN (18:42)
[2020-12-21 22:00] VITALS: BP 109/68
[2020-12-21] MEDS ORDERED: ACETAMINOPHEN 325 MG TAB PO PRN (22:00)
[2020-12-22 02:14] VITALS: BP 109/68
[2020-12-22 05:00] VITALS: BP 104/80
[2020-12-22] MEDS: FUROSEMIDE 20 MG/2 ML VIAL IV SCH (06:11)
[2020-12-22 06:57] LABS: Eosinophils # (auto) 0.1 10 ^3/uL (0-0.8); Eosinophils % (auto) 2.2 % (0.0-7.0); Monocytes # (auto) 0.7 10 ^3/uL (0-1.3); Nucleated Red Blood Cells % 0.2 %; Red Cell Distribution Width 15.2 % (11.8-14.3); White Blood Cell 6.5 10^3/uL (4.4-10.8)
[2020-12-22 07:00] LABS: Basophils # (auto) 0.1 10 ^3/uL (0-0.2); Basophils % (auto) 0.8 % (0.0-2.0); Hematocrit 47.8 % (41.0-53.0); Hemoglobin 15.8 g/dL (13.5-17.5); Lymphocytes # (auto) 3.4 10 ^3/uL (0.4-5.4); Mean Corpuscular Hemoglobin 29.2 pg (28.0-32.0); Mean Corpuscular Hgb Conc. 33.2 g/dL (32.0-36.0); Mean Corpuscular Volume 88.2 fL (80.0-100.0); Monocytes % (auto) 10.2 % (0.0-12.0); Neutrophils # (auto) 2.2 10 ^3/uL (1.6-8.6); Neutrophils % (auto) 34.8 % (37.0-80.0); Red Blood Cells 5.42 10^6/uL (4.5-5.90)
[2020-12-22] MEDS: ALBUTEROL SULF HFA 90MCG INH 200DOSE IN PRN (07:26)
[2020-12-22 07:34] LABS: Potassium 4.2 mmol/L (3.5-5.1)
[2020-12-22 07:58] LABS: Calcium 9.6 mg/dL (8.5-10.1)
[2020-12-22 08:19] LABS: BUN/Creatinine Ratio 27.5
[2020-12-22] MEDS: FAMOTIDINE (10MG/ML) 2ML VL IV SCH (09:30)
[2020-12-22] MEDS: ASCORBIC ACID 1,000 MG TAB PO SCH (09:30)
[2020-12-22] MEDS: CHOLECALCIFEROL (VITD3) 2,000 UNIT CAP/TAB PO SCH (09:30)
[2020-12-22] MEDS: ENOXAPARIN SOD 60 MG/0.6 ML SYRINGE SC SCH (09:30)
[2020-12-22] MEDS: ZINC SULFATE 220mg CAP or TAB PO SCH (09:30)
[2020-12-22 09:41] VITALS: BP 117/77
[2020-12-22] MEDS ORDERED: ALBUAER3 IN (11:19)
[2020-12-22] MEDS ORDERED: ASCO10003 PO (11:19)
[2020-12-22] MEDS ORDERED: CHOL1CAP47 PO (11:19)
[2020-12-22 11:31] VITALS: BP 104/80
[2020-12-22] MEDS ORDERED: ALBU1AER4 IN (12:49)
== END 2020-12-22 12:40 | disposition home or self-care (01) | DRG 720 ==
LOC: ER 17:05 → EDBD 17:05 → TELE 21:19 → DOU IN ICU 12-15 20:25 → TELE-EAST 12-20 05:20
PROVIDERS: ADMIT Nurse Practitioner; ATTEND Internal Medicine Pulmonary Disease
PROC: XW033E5 Introduction of Remdesivir Anti-infective into Peripheral Vein, Percutaneous Approach, New Technology Group 5 (ICD-10-PCS; principal; 2020-12-11)
PROC: XW033H5 Introduction of Tocilizumab into Peripheral Vein, Percutaneous Approach, New Technology Group 5 (ICD-10-PCS; 2020-12-11)
DX: A41.89 Other specified sepsis (principal); J96.01 Acute respiratory failure with hypoxia; J12.82 Pneumonia due to coronavirus disease 2019; U07.1 COVID-19; D89.839 Cytokine release syndrome, grade unspecified; N17.9 Acute kidney failure, unspecified; N18.31 Chronic kidney disease, stage 3a; I12.9 Hypertensive chronic kidney disease with stage 1 through stage 4 chronic kidney disease, or unspecified chronic kidney disease; E87.6 Hypokalemia; E66.9 Obesity, unspecified; E55.9 Vitamin D deficiency, unspecified; Z68.34 Body mass index [BMI] 34.0-34.9, adult
CPT/HCPCS: 36415; 36600; 71045; 80048; 80053; 80061; 81001; 82306; 82550; 82728; 82805; 83036; 83605; 83615; 83735; 83880; 84100; 84443; 84484; 84550; 85007; 85025; 85027; 85379; 85610; 85730; 86141; 87040; 87081; 87426; 93005; 93970; 94640; 96361; 96365; 96366; 96367; 96372; 96375; 99291; G0378; J0696; J1100; J2001; J3490

== ENCOUNTER 2021-05-28 06:32 | Inpatient (IN) | payer MEDICAID, OTHER ==
[~2021-05-28] VITALS: Ht 177.8 cm; Wt 115.2 kg
[~2021-05-28 06:32] MED LIST: ALBU1AER4 IN; ALBUAER3 IN; ASCO10003 PO; CHOL1CAP47 PO
[2021-05-28] MEDS ORDERED: LORazepam 0.5 MG TAB PO ONE (07:00)
[2021-05-28] MEDS ORDERED: cloNIDine HCL 0.1 MG TAB PO ONE (07:00)
[2021-05-28] MEDS ORDERED: InsuLIN REG 1unit/0.01ml Soln (100units/ml) IV ONE (07:45)
[2021-05-28] MEDS ORDERED: SODIUM CHLORIDE 0.9% 1,000 ML IV ONE ×3 (07:45→08:45)
[2021-05-28 07:47] LABS: Basophils # (auto) 0.1 10 ^3/uL (0-0.2); Eosinophils # (auto) 0.1 10 ^3/uL (0-0.8); Eosinophils % (auto) 0.7 % (0.0-7.0); Hematocrit 52.4 % (41.0-53.0); Hemoglobin 17.1 g/dL (13.5-17.5); Lymphocytes # (auto) 2.3 10 ^3/uL (0.4-5.4); Lymphocytes % (auto) 25.7 % (10.0-50.0); Mean Corpuscular Hemoglobin 28.9 pg (28.0-32.0); Mean Corpuscular Hgb Conc. 32.7 g/dL (32.0-36.0); Mean Corpuscular Volume 88.4 fL (80.0-100.0); Monocytes # (auto) 0.7 10 ^3/uL (0-1.3); Monocytes % (auto) 8.3 % (0.0-12.0); Neutrophils # (auto) 5.7 10 ^3/uL (1.6-8.6); Neutrophils % (auto) 64.3 % (37.0-80.0); Nucleated Red Blood Cells % 0.1 %; Red Blood Cells 5.93 10^6/uL (4.5-5.90); Red Cell Distribution Width 14.4 % (11.8-14.3); White Blood Cell 8.9 10^3/uL (4.4-10.8)
[2021-05-28 08:02] LABS: Albumin 4.3 g/dL (3.4-5.0); Calcium 10.3 mg/dL (8.5-10.1); Potassium 4.8 mmol/L (3.5-5.1)
[2021-05-28 08:04] LABS: Bilirubin, Total 1.1 mg/dL (0.2-1.0); Total Protein 8.9 g/dL (6.4-8.2)
[2021-05-28 08:13] LABS: BUN/Creatinine Ratio 15.3
[2021-05-28] MEDS ORDERED: INSULIN LANTUS (GLARGINE) 1 /0.01ml (100units/ml) SC ONE (08:30)
[2021-05-28] MEDS ORDERED: DEXTROSE (50%) 50ML SYRG IV PRN (08:30)
[2021-05-28] MEDS ORDERED: InsuLIN R (HUMAN) 100 UNITS in SODIUM CHL 0.9% 99 ML IV SCH (08:30)
[2021-05-28] MEDS ORDERED: HYDROcodone-ACET 5/325MG TAB PO PRN (09:00)
[2021-05-28] MEDS ORDERED: NITROGLYCERIN 0.4 MG SL TAB SL PRN (09:00)
[2021-05-28] MEDS ORDERED: SODIUM CHLORIDE 0.9% 2,000 ML IV ONE (09:00)
[2021-05-28] MEDS ORDERED: ONDANSETRON HCL 4 MG/2 ML VIAL IV PRN (09:00)
[2021-05-28] MEDS ORDERED: TEMAZEPAM 15 MG CAP PO PRN (09:00)
[2021-05-28] MEDS ORDERED: ACETAMINOPHEN 325 MG TAB PO PRN ×2 (09:00)
[2021-05-28] MEDS ORDERED: DOCUSATE SOD 100 MG CAP PO PRN (09:00)
[2021-05-28] MEDS ORDERED: MORPHINE SULFATE 4 MG/ML SYR/VIAL IV PRN (09:00)
[2021-05-28] MEDS: ACCU-CHEK COMFORT CURVE STRIP VI SCH ×10 (09:04→22:30)
[2021-05-28 09:56] LABS: Urine Bacteria NONE SEEN /hpf (None Seen); Urine Blood Negative /uL (Negative); Urine Specific Gravity 1.037 (1.001-1.035); Urine WBC <1 /hpf (0 - 3)
[2021-05-28] MEDS ORDERED: SOD CHL 0.9%/ KCL 20MEQ 1,000 ML IV PRN (10:00)
[2021-05-28] MEDS ORDERED: D5W/SOD CHLO 0.9% 1,000 ML IV PRN (10:00)
[2021-05-28] MEDS ORDERED: LACTATED RINGER'S 2,000 ML IV ONE (10:00)
[2021-05-28 10:09] LABS: Alcohol, Urine < 3.0 mg/dL (0-10); Amphetamine Screen, Urine NEGATIVE (NEGATIVE); Barbiturate Scree,Urine NEGATIVE (NEGATIVE); Benzodiazephine Screen, Urine NEGATIVE (NEGATIVE); Cannabinoid Screen, Urine NEGATIVE (NEGATIVE); Cocaine Screen, Urine NEGATIVE (NEGATIVE)
[2021-05-28 10:11] LABS: Opiate Scree,Urine NEGATIVE (NEGATIVE); Phencyclidine Screen, Urine NEGATIVE (NEGATIVE)
[2021-05-28 11:01] LABS: Cholesterol 210 mg/dL (< 200)
[2021-05-28 11:05] LABS: HDL Cholesterol 30 mg/dL (40-59); Triglycerides 466 mg/dL (< 150)
[2021-05-28 11:45] LABS: Phosphorus 4.8 mg/dL (2.5-4.90)
[2021-05-28 12:01] LABS: INR 1.04 (0.9-1.15)
[2021-05-28] MEDS: HEPARIN SODIUM (PORCINE) 5000 UNITS/ML 1ML VIAL SC SCH ×2 (12:19→21:47)
[2021-05-28 18:27] LABS: BUN/Creatinine Ratio 14.1; Calcium 8.5 mg/dL (8.5-10.1); Potassium 3.8 mmol/L (3.5-5.1)
[2021-05-28 22:38] LABS: Anion Gap 2 (5-15); Blood Urea Nitrogen 17 mg/dL (7-18); Calcium 8.4 mg/dL (8.5-10.1); Carbon Dioxide 29 mmol/L (21-32); Chloride 116 mmol/L (98-107); Glucose 228 mg/dL (74-106); Potassium 3.9 mmol/L (3.5-5.1); Sodium 147 mmol/L (136-145)
[2021-05-28 22:41] LABS: BUN/Creatinine Ratio 14.4; GFR African American 89 mL/min; GFR Non-African American 74 mL/min
[2021-05-29] VITALS (7 sets, daily range): BP systolic 105–145; BP diastolic 64–88
[2021-05-29] MEDS: ACCU-CHEK COMFORT CURVE STRIP VI SCH ×6 (00:05→21:35)
[2021-05-29] MEDS ORDERED: DEXTROSE (50%) 50ML SYRG IV PRN ×2 (00:15→13:15)
[2021-05-29] MEDS: SOD CHL 0.45% 1,000 ML IV SCH ×2 (01:15→14:58)
[2021-05-29] MEDS: InsuLIN REG 1unit/0.01ml Soln (100units/ml) SC SCH ×4 (04:51→17:52)
[2021-05-29 07:39] LABS: Basophils # (auto) 0.1 10 ^3/uL (0-0.2); Basophils % (auto) 1.4 % (0.0-2.0); Eosinophils # (auto) 0.2 10 ^3/uL (0-0.8); Eosinophils % (auto) 2.7 % (0.0-7.0); Hematocrit 41.8 % (41.0-53.0); Hemoglobin 14.1 g/dL (13.5-17.5); Lymphocytes # (auto) 2.8 10 ^3/uL (0.4-5.4); Mean Corpuscular Hemoglobin 28.8 pg (28.0-32.0); Mean Corpuscular Hgb Conc. 33.7 g/dL (32.0-36.0); Mean Corpuscular Volume 85.4 fL (80.0-100.0); Monocytes # (auto) 0.4 10 ^3/uL (0-1.3); Monocytes % (auto) 6.7 % (0.0-12.0); Neutrophils % (auto) 46.2 % (37.0-80.0); Nucleated Red Blood Cells % 0.2 %; Red Cell Distribution Width 14.2 % (11.8-14.3); White Blood Cell 6.5 10^3/uL (4.4-10.8)
[2021-05-29 07:48] LABS: Albumin 3.2 g/dL (3.4-5.0); Calcium 8.2 mg/dL (8.5-10.1); Potassium 4.1 mmol/L (3.5-5.1)
[2021-05-29 07:52] LABS: BUN/Creatinine Ratio 10.8; Bilirubin, Total 0.8 mg/dL (0.2-1.0); Total Protein 6.3 g/dL (6.4-8.2)
[2021-05-29] MEDS: HEPARIN SODIUM (PORCINE) 5000 UNITS/ML 1ML VIAL SC SCH ×2 (09:07→21:29)
[2021-05-29] MEDS ORDERED: INSULIN LANTUS (GLARGINE) 1 /0.01ml (100units/ml) SC SCH (10:00)
[2021-05-29] MEDS ORDERED: INSULIN LANTUS (GLARGINE) 1 /0.01ml (100units/ml) SC ONE (13:15)
[2021-05-29] MEDS: INSULIN LANTUS (GLARGINE) 1 /0.01ml (100units/ml) SC SCH (21:35)
[2021-05-29] MEDS ORDERED: InsuLIN REG 1unit/0.01ml Soln (100units/ml) SC SCH (22:00)
[2021-05-30] MEDS: SOD CHL 0.45% 1,000 ML IV SCH ×2 (02:52→16:15)
[2021-05-30 04:48] VITALS: BP 117/77
[2021-05-30] MEDS: ACCU-CHEK COMFORT CURVE STRIP VI SCH ×3 (06:49→17:00)
[2021-05-30] MEDS: InsuLIN REG 1unit/0.01ml Soln (100units/ml) SC SCH ×3 (06:55→17:00)
[2021-05-30 08:52] LABS: Calcium 8.7 mg/dL (8.5-10.1); Potassium 3.1 mmol/L (3.5-5.1)
[2021-05-30 08:58] LABS: BUN/Creatinine Ratio 10.3
[2021-05-30 09:00] VITALS: BP 104/61
[2021-05-30] MEDS: HEPARIN SODIUM (PORCINE) 5000 UNITS/ML 1ML VIAL SC SCH (10:43)
[2021-05-30] MEDS: INSULIN LANTUS (GLARGINE) 1 /0.01ml (100units/ml) SC SCH (11:52)
[2021-05-30] MEDS ORDERED: INSU100I4 SC (12:57)
[2021-05-30] MEDS ORDERED: LISI-275 PO (12:57)
[2021-05-30] MEDS ORDERED: INSU1INJ19 SC (12:57)
[2021-05-30 13:00] VITALS: BP 133/77
[2021-05-30] MEDS ORDERED: SYRI25MI4 XX (13:05)
[2021-05-30] MEDS ORDERED: LANC-347 XX (13:05)
[2021-05-30] MEDS ORDERED: BLOO1KIT60 XX (13:05)
== END 2021-05-30 16:56 | disposition home health service (06) | DRG 420 ==
LOC: EDBD 06:32 → ER 06:32 → TELE 08:48 → TELE-CENTR 05-29 02:18
PROVIDERS: ADMIT Registered Nurse; ATTEND Hospitalist
DX: E11.10 Type 2 diabetes mellitus with ketoacidosis without coma (principal); N17.9 Acute kidney failure, unspecified; E87.0 Hyperosmolality and hypernatremia; E11.22 Type 2 diabetes mellitus with diabetic chronic kidney disease; N18.30 Chronic kidney disease, stage 3 unspecified; H54.7 Unspecified visual loss; I12.9 Hypertensive chronic kidney disease with stage 1 through stage 4 chronic kidney disease, or unspecified chronic kidney disease; E66.9 Obesity, unspecified; R82.4 Acetonuria; R80.9 Proteinuria, unspecified; Z79.4 Long term (current) use of insulin; E11.319 Type 2 diabetes mellitus with unspecified diabetic retinopathy without macular edema; Z68.35 Body mass index [BMI] 35.0-35.9, adult
CPT/HCPCS: 36415; 36600; 70551; 71045; 80048; 80053; 80061; 80307; 81001; 82010; 82805; 82962; 83036; 83735; 83930; 84100; 85025; 85610; 87426; 93005; 96361; 96374; 99291; G0378; J1815

== ENCOUNTER 2022-06-01 14:36 | Inpatient (IN) | payer MEDICAID ==
[~2022-06-01] VITALS: Ht 175.3 cm; Wt 113.5 kg
[~2022-06-01 14:36] MED LIST changes: -ALBU1AER4 IN; -ASCO10003 PO; +BLOO1KIT60 XX; -CHOL1CAP47 PO; +INSU100I4 SC; +INSU1INJ19 SC; +LANC-347 XX; +LISI-275 PO; +SYRI25MI4 XX
[2022-06-01] MEDS: SODIUM CHLORIDE 0.9% 1,000 ML IV ONE ×2 (15:03→15:37)
[2022-06-01 15:27] LABS: Basophils # (auto) 0.1 10 ^3/uL (0-0.2); Basophils % (auto) 1.1 % (0.0-2.0); Eosinophils # (auto) 0.1 10 ^3/uL (0-0.8); Hematocrit 48.9 % (41.0-53.0); Hemoglobin 15.9 g/dL (13.5-17.5); Lymphocytes # (auto) 2.4 10 ^3/uL (0.4-5.4); Lymphocytes % (auto) 33.6 % (10.0-50.0); Mean Corpuscular Hemoglobin 28.4 pg (28.0-32.0); Mean Corpuscular Hgb Conc. 32.6 g/dL (32.0-36.0); Mean Corpuscular Volume 87.1 fL (80.0-100.0); Monocytes # (auto) 0.5 10 ^3/uL (0-1.3); Monocytes % (auto) 6.8 % (0.0-12.0); Neutrophils # (auto) 4.1 10 ^3/uL (1.6-8.6); Neutrophils % (auto) 57.5 % (37.0-80.0); Nucleated Red Blood Cells % 0.2 %; Red Blood Cells 5.61 10^6/uL (4.5-5.90); Red Cell Distribution Width 14.3 % (11.8-14.3); White Blood Cell 7.1 10^3/uL (4.4-10.8)
[2022-06-01 16:02] LABS: Albumin 4.1 g/dL (3.4-5.0); Potassium 4.1 mmol/L (3.5-5.1)
[2022-06-01 16:11] LABS: BUN/Creatinine Ratio 11.2; Bilirubin, Total 0.8 mg/dL (0.2-1.0); Total Protein 8.4 g/dL (6.4-8.2)
[2022-06-01] MEDS ORDERED: InsuLIN REG 1unit/0.01ml Soln (100units/ml) IV ONE (16:45)
[2022-06-01 17:18] LABS: Urine Bacteria NONE SEEN /hpf (None Seen); Urine Blood Negative /uL (Negative); Urine Specific Gravity 1.038 (1.001-1.035); Urine WBC <1 /hpf (0 - 3)
[2022-06-01] MEDS ORDERED: SODIUM CHLORIDE 0.9% 1,000 ML IV ONE ×2 (17:45→18:00)
[2022-06-01] MEDS ORDERED: MORPHINE SULFATE INJ 2 MG/ml SYRG IV PRN (18:00)
[2022-06-01] MEDS ORDERED: NITROGLYCERIN 0.4 MG SL TAB SL PRN (18:00)
[2022-06-01] MEDS ORDERED: ONDANSETRON HCL 4 MG/2 ML VIAL IV PRN (18:00)
[2022-06-01] MEDS ORDERED: ACETAMINOPHEN 325 MG TAB PO PRN (18:00)
[2022-06-01] MEDS ORDERED: DEXTROSE (50%) 50ML SYRG IV PRN (18:00)
[2022-06-01 18:41] LABS: Cholesterol 190 mg/dL (< 200); HDL Cholesterol 32 mg/dL (40-59); Triglycerides 620 mg/dL (< 150)
[2022-06-01] MEDS: ACCU-CHEK COMFORT CURVE STRIP VI SCH (20:00)
[2022-06-01] MEDS: InsuLIN REG 1unit/0.01ml Soln (100units/ml) SC SCH (20:48)
[2022-06-01] MEDS: SOD CHL 0.45% 1,000 ML IV SCH (20:49)
[2022-06-02] MEDS: ACCU-CHEK COMFORT CURVE STRIP VI SCH ×4 (00:15→12:10)
[2022-06-02] MEDS: InsuLIN REG 1unit/0.01ml Soln (100units/ml) SC SCH ×4 (00:17→12:11)
[2022-06-02 04:51] LABS: Basophils # (auto) 0.2 10 ^3/uL (0-0.2); Eosinophils # (auto) 0.1 10 ^3/uL (0-0.8); Eosinophils % (auto) 1.5 % (0.0-7.0); Hematocrit 41.4 % (41.0-53.0); Hemoglobin 13.9 g/dL (13.5-17.5); Lymphocytes # (auto) 3.8 10 ^3/uL (0.4-5.4); Mean Corpuscular Hemoglobin 28.8 pg (28.0-32.0); Mean Corpuscular Hgb Conc. 33.4 g/dL (32.0-36.0); Mean Corpuscular Volume 86.1 fL (80.0-100.0); Monocytes # (auto) 0.7 10 ^3/uL (0-1.3); Neutrophils # (auto) 3.3 10 ^3/uL (1.6-8.6); Neutrophils % (auto) 40.5 % (37.0-80.0); Nucleated Red Blood Cells % 0.2 %; Red Blood Cells 4.81 10^6/uL (4.5-5.90); Red Cell Distribution Width 14.3 % (11.8-14.3); White Blood Cell 8.2 10^3/uL (4.4-10.8)
[2022-06-02 05:40] LABS: Potassium 3.9 mmol/L (3.5-5.1)
[2022-06-02 05:51] LABS: Albumin 3.3 g/dL (3.4-5.0); BUN/Creatinine Ratio 12.7; Calcium 8.8 mg/dL (8.5-10.1)
[2022-06-02 06:11] LABS: Bilirubin, Total 0.6 mg/dL (0.2-1.0); Total Protein 7.1 g/dL (6.4-8.2)
[2022-06-02 08:00] VITALS: BP 119/69
[2022-06-02] MEDS ORDERED: SODIUM CHLORIDE 0.9% 1,000 ML IV SCH (09:00)
[2022-06-02] MEDS: SOD CHL 0.45% 1,000 ML IV SCH ×2 (09:21→09:23)
[2022-06-02] MEDS ORDERED: INSULIN LANTUS (GLARGINE) 1 /0.01ml (100units/ml) SC SCH (10:00)
[2022-06-02] MEDS ORDERED: ENOXAPARIN SOD 40 MG/0.4 ML SYRINGE SC SCH (10:00)
[2022-06-02] MEDS ORDERED: INSLANTI SC (11:39)
[2022-06-02] MEDS ORDERED: EMPA1TAB PO (11:40)
[2022-06-02] MEDS ORDERED: LISI2.5T47 PO (11:40)
[2022-06-02] MEDS ORDERED: FENO5TAB PO (11:45)
== END 2022-06-02 12:42 | disposition home or self-care (01) | DRG 420 ==
LOC: ER 14:36 → TELE 17:50
PROVIDERS: ADMIT Nurse Practitioner Family; ATTEND Internal Medicine
DX: E11.00 Type 2 diabetes mellitus with hyperosmolarity without nonketotic hyperglycemic-hyperosmolar coma (NKHHC) (principal); N17.9 Acute kidney failure, unspecified; T38.3X6A Underdosing of insulin and oral hypoglycemic [antidiabetic] drugs, initial encounter; E11.65 Type 2 diabetes mellitus with hyperglycemia; E66.01 Morbid (severe) obesity due to excess calories; E78.1 Pure hyperglyceridemia; I10 Essential (primary) hypertension; Z20.822 Contact with and (suspected) exposure to COVID-19; Z68.37 Body mass index [BMI] 37.0-37.9, adult; Z91.199 Patient's noncompliance with other medical treatment and regimen due to unspecified reason
CPT/HCPCS: 36415; 36600; 71045; 80053; 80061; 81001; 82010; 82805; 82962; 83036; 84443; 85025; 87426; 96361; 96372; 96374; G0378; J1815

== ENCOUNTER 2024-02-17 10:46 | Emergency (ER) | payer MEDICAID ==
[~2024-02-17] VITALS: Ht 172.7 cm; Wt 105.8 kg
[~2024-02-17 10:46] MED LIST changes: +EMPA1TAB PO; +FENO5TAB PO; +INSLANTI SC; +LISI2.5T47 PO
--- NOTE | 2024-02-17 11:26 | ED.PDOC ---
History of Present Illness HPI Comments HPI: HPI: Poor Historian. 38y M who presents to the ED for chief complaint of nausea and vomiting. Pt states he has been having nausea, vomiting, generalized weakness and polydipsia for the past 1 week getting progressively worse. Pt states he does have history of Diabetes and states he has been noncompliant with his medications for the past "1 year." Pt otherwise urinary urgency, frequency, diarrhea, fever, cough, chills, chest pain or shortness of breath. Pt in the ED, with Accu check of 89. Pt otherwise denies any other symptoms at this time. Patient is supposed to be on insulin. Vitals T: 98.2F RR: 18 HR: 98 BP: 150/99 O2: 96% on RA PMHx: DM, HTN PSHx: denies Social hx: denies tobacco use, denies ETOH use, denies drug use Meds: insulin, Allergies: NKDA REVIEW OF SYSTEMS: CONSTITUTIONAL: Denies acute: fever, diaphoresis, chills, HEAD: Denies acute: headache, photophobia Eyes: Denies acute: Double vision, vision loss, eye pain, eye discharge. EARS: Denies acute: tinnitus, hearing loss, ear discharge, ear pain, THROAT: Denies acute: sore throat, swelling, difficulty swallowing , pain with swallowing, change in voice. NECK: Denies acute: neck pain, neck swelling, stiff neck. HEART: Denies acute : chest pain, palpitations, LUNGS: Denies acute: SOB, wheezing, cough, hemoptysis ABDOMEN: Denies acute: abdominal pain, Vomiting, diarrhea, melena , hematemesis, hematochezia SKIN: Denies acute: rash, redness, lesions, itchiness. EXTREMITIES: Denies acute: calf pain, numbness, tingling, weakness, denies pain in extremity. Denies acute: Low back pain. Neuro: Denies acute: focal neurological deficit, motor or sensory focal neurological deficit, tremors, seizure like activity, confusion, change in mental status, loss of bowel or bladder function, cauda equina like symptoms. : Denies acute: dysuria, hematuria, flank pain, increase in urinary frequency. PSYCH: Denies acute: hallucination, suicidal ideation, homicidal ideation. PHYSICAL EXAM: General: no acute distress, awake and alert. Head: normocephalic, atraumatic. Neck: supple, trachea is midline, no swelling. Throat: Normal phonation. Eyes:, no erythema, no purulent discharge, no proptosis, no icterus. Heart: regular rate, regular rhythm, no significant murmur appreciated. Lungs: no apparent respiratory distress, Able to speak in full sentences. No wheezing, no rhonchi, no crackles. No stridors Clear to auscultation bilaterally. Abdomen: non tender to palpation, non distended, soft, no guarding, no rebound, + bowel sounds. Neuro: Awake, Alert, oriented to name, self, situation, follows commands GCS=15. Speech is normal. Skin: no petechia, no purpura, no cyanosis, non-pale, not jaundice. Lower extremities: --no - Pitting edema no deformity, no focal swelling, no calf TTP. Makes eye contact. moves all four extremities. Face: no apparent facial droop. Ambulating in the ED independently. Chief Complaint: Nausea/Vomiting Time Seen by MD: 11:24 Primary Care Provider: [facility] Reviewed Notes: Nurses Notes, Medications, Allergies Allergies: Coded Allergies: NO KNOWN ALLERGIES (Unverified , 12/10/20) Home Meds Active Scripts Fenofibrate (Tricor) 145 Mg Tab, 145 MG PO DAILY for 30 Days, #30 TAB Prov:CALLY MARISCAL MD 06/02/22 Lisinopril (Lisinopril) 2.5 Mg Tab, 1 TAB PO DAILY, #30 TAB 5 Refills Prov:CALLY MARISCAL MD 06/02/22 Empagliflozin (Jardiance) 10 Mg Tab, 10 MG PO DAILY for 30 Days, #30 TAB Prov:CALLY MARISCAL MD 06/02/22 Insulin Glargine (Lantus) 100 Unit/Ml Inj, 20 UNIT SC DAILY for 30 Days, #30 INJ Prov:CALLY MARISCAL MD 06/02/22 Lancets (Freestyle Lancets) Lancets Mis, BOT XX ACHS, #60 Prov:MORGAN CHAVARRIA MD 05/30/21 Blood Glucose Monitoring Suppl (D-Care Glucometer Kit/Glu W/Device) 1 Kit Kit, KIT XX, #1 Prov:MORGAN CHAVARRIA MD 3/9/22 Syringe/Needle (Disp) 3 Ml (3ML Syringe/25G X 1"/Luer) 25 Gx1 Mis, GX1 XX AC, #60 Prov:MORGAN CHAVARRIA MD 05/30/21 Lisinopril (Lisinopril) 5 Mg Tab, 5 MG PO QPM, #30 TAB Prov:MORGAN CHAVARRIA MD 05/30/21 Insulin Lispro (Humalog Kwikpen) 100 Unit/Ml Inj, 10 UNIT SC TIDWMEALS, #20 INJ Prov:MORGAN CHAVARRIA MD 05/30/21 Insulin Glargine (Basaglar Kwikpen) 100 Unit/Ml Inj, 20 UNIT SC BIDBRS, #14 INJ Prov:MORGAN CHAVARRIA MD 05/30/21 Albuterol Sulfate (VENTOLIN MDI) 90 Mcg Ih, 90 MCG IN TIDPRN PRN for 30 Days, #30 INH Prov:PRISCILA HENRIQUEZ MD 12/22/20 Information Source: Patient Mode of Arrival: Ambulatory Past Medical History PAST MEDICAL HISTORY: DM, HTN Surgical History: Denies all surgeries Family History Family History: Reviewed,noncontributory to illness Social History Smoker: Non-Smoker Alcohol: Denies ETOH Use Drugs: Denies Drug Use Lives In: Home Was a procedure done? Was a procedure done?: No Differential Dx Considerations may include: DKA, hyperglycemia, hyperosmolar state, infection, dehydration, anemia, X-Ray, Labs, Meds, VS Vital Signs Date Time Temp Pulse Resp B/P (MAP) Pulse Ox O2 Delivery O2 Flow Rate FiO2 02/17/24 16:29 77 18 140/91 (107) 94 02/17/24 14:00 98.4 75 18 143/91 (108) 98 98.4 02/17/24 11:50 98.0 88 18 148/94 (112) 95 98.0 02/17/24 11:50 88 18 95 Room Air 02/17/24 11:08 98.2 98 18 150/99 (116) 96 Lab Test 02/17/24 12:12 02/17/24 11:50 02/17/24 11:08 02/17/24 11:07 Range/Units White Blood Count 5.4 4.4-10.8 10^3/uL Red Blood Count 5.07 4.5-5.90 10^6/uL Hemoglobin 14.7 13.5-17.5 g/dL Hematocrit 44.4 41.0-53.0 % Mean Corpuscular Volume 87.6 80.0-100.0 fL Mean Corpuscular Hemoglobin 29.0 28.0-32.0 pg Mean Corpuscular Hemoglobin Concent 33.1 32.0-36.0 g/dL Red Cell Distribution Width 14.6 H 11.8-14.3 % Platelet Count 226 140-450 10^3/uL Mean Platelet Volume 10.1 6.9-10.8 fL Neutrophils (%) (Auto) 43.1 37.0-80.0 % Lymphocytes (%) (Auto) 46.5 10.0-50.0 % Monocytes (%) (Auto) 8.7 0.0-12.0 % Eosinophils (%) (Auto) 0.9 0.0-7.0 % Basophils (%) (Auto) 0.8 0.0-2.0 % Neutrophils # (Auto) 2.3 1.6-8.6 10 ^3/uL Lymphocytes # (Auto) 2.5 0.4-5.4 10 ^3/uL Monocytes # (Auto) 0.5 0-1.3 10 ^3/uL Eosinophils # (Auto) 0.1 0-0.8 10 ^3/uL Basophils # (Auto) 0 0-0.2 10 ^3/uL Nucleated Red Blood Cells 0.2 % Sodium Level 141 136-145 mmol/L Potassium Level 3.8 3.5-5.1 mmol/L Chloride Level 106 98-107 mmol/L Carbon Dioxide Level 27 20-31 mmol/L Anion Gap 8 5-15 Blood Urea Nitrogen 10 9-23 mg/dL Creatinine 1.20 0.700-1.30 mg/dL Glomerular Filtration Rate Calc 79 >90 mL/min BUN/Creatinine Ratio 8.3 L 10.0-20.0 Serum Glucose 74 74-106 mg/dL Lactic Acid Level 1.3 0.4-2.0 mmol/L Calcium Level 9.8 8.7-10.4 mg/dL Magnesium Level 2.0 1.6-2.6 mg/dL Total Bilirubin 1.3 H 0.2-1.0 mg/dL Aspartate Amino Transferase (AST) 22 13-40 U/L Alanine Aminotransferase (ALT) 17 7-40 U/L Alkaline Phosphatase 57 46-116 U/L Troponin I High Sensitivity < 3 L </=54 ng/L Total Protein 7.3 5.7-8.2 g/dL Albumin 4.5 3.2-4.8 g/dL POC Glucose 95 89 70-106 mg/dl Urine Color Yellow Yellow Urine Clarity Clear Clear Urine pH 5.5 5.0-9.0 Urine Specific [place] 1.031 1.001-1.035 Urine Protein 1+ H Negative Urine Ketones 2+ H Negative Urine Blood Negative Negative /uL Urine Nitrite Negative Negative Urine Bilirubin Negative Negative Urine Urobilinogen Normal Negative mg/dL Urine Leukocyte Esterase Negative Negative /uL Urine RBC 1 0 - 3 /hpf Urine WBC 1 0 - 3 /hpf Urine Squamous Epithelial Cells Few <5 /hpf Urine Bacteria None Seen /hpf Urine Mucus Few None Seen Urine Glucose Normal Normal mg/dL Urine Opiates Screen Neg NEGATIVE Urine Fentanyl Screen Neg NEGATIVE Urine Barbiturates Screen Neg NEGATIVE Urine Phencyclidine Screen Neg NEGATIVE Urine Amphetamines Screen Neg NEGATIVE Urine Benzodiazepines Screen Neg NEGATIVE Urine Cocaine Screen Neg NEGATIVE Urine Cannabinoids Screen Neg NEGATIVE Current Medications Medications (Trade) Dose Ordered Sig/Huma Route Start Time Stop Time Status Last Admin Sodium Chloride 1,000 ml @ 1,000 mls/hr Q1H ONCE IV 02/17/24 11:30 02/17/24 12:29 DC 02/17/24 11:52 Ondansetron HCl (Zofran) 8 mg ONCE ONCE IV 02/17/24 11:30 02/17/24 11:31 DC 02/17/24 11:52 [place] [id number] Ph: [phone] DIAGNOSTIC IMAGING Diagnostic Imaging Report : [id number] Signed PATIENT: GENIE COLEY ACCT: [id number] UNIT: [id number] : 1985 LOC: ER ROOM / BED: / AGE / SEX: 38 / M ADM STATUS: REG ER SERVICE 1128 ORDERING PHYSICIAN: AMADO GARCIA DO PROCEDURE(s): CXRP - CHEST PORTABLE REASON: dizzy weak ORDER NUMBER(s): [id number], ACCESSION NUMBER(s): [id number] CHEST RADIOGRAPH Indication: dizzy weak Technique: Single frontal view of the chest was obtained Comparison: XY CHEST XRAY 1 VIEW on DOS: 06/01/22 FINDINGS: Lines and Tubes: None Lungs: No focal consolidation. Pleura: No effusion. No pneumothorax. Cardiomediastinal contours: Unremarkable Bones: No acute osseous abnormality. IMPRESSION: 1. No acute cardiopulmonary disease. ATED BY: STANLEY SUMMERS MD DICTATED DATE/TIME: 02/17/24 115 SIGNED BY: STANLEY SUMMERS MD SIGNED DATE/TIME: 02/17/24 1154 CC: Time of 1ST Reevaluation: 00:25 Reevaluation 1ST: Resolved Patient Education/Counseling: Diagnosis, Treatment Family Education/Counseling: No Family Present Comments Patient presented with the above HPI.----hyperglycemia evaluation--workup was initiated. patient was found with the above mentioned diagnosis. Patient was given: Fluids and Zofran Patient ED course and VS have been stabilized. Patient has been reassessed in the ED and remained in a stable condition. Pertinent incidental findings were discussed with the patient and/or family. Patient/family voices understanding and is agreeable with plan. Patient has been observed in the ED adequate length of time to insure improvement/stability. patient was discharged home in a stable condition. All the reports of any imaging studies that were ordered by myself were reviewed by myself. Departure 1 Departure Time of Disposition: 16:53 Impression: Primary Impression: History of diabetes mellitus Disposition: HOME / SELF CARE / HOMELESS Condition: Stable Additional Instructions: Additional discharge instructions: You MUST follow-up with your primary care/family doctor in 1 to 2 days. If you are unable to see your primary care/family doctor, please return to our emergency room for re-assessment and re-evaluation in 1 to 2 days. Return to the emergency room here in our facility or to the nearest ER [facility] if your symptoms change or worsen. CONSULTATIONS: you MUST Follow-up for consultation as soon as possible with: -endocrinology in 1-2 days. Please call for appointment. You MUST call the consultants office yourself to make an appointment. You may need to arrange that through your insurance and/or your primary/family doctor. If you are unable to see the business solutions consultant in 1 to 2 days, you must return to our emergency room (or any other ER of your choice) for re-assessment and re- evaluation. Adequate fluid hydration. Monitor blood sugar at home closely. Discharged With: Self Critical Care Note Critical Care Time?: No I personally scribed for AMADO GARCIA DO ([email or web address]) on 02/17/24 at 11:26. Electronically submitted by Josemanuel Parker ([email or web address]). I personally scribed for AMADO GARCIA DO ([email or web address]) on 02/17/24 at 12:16. Electronically submitted by Josemanuel Parker ([email or web address]). I personally scribed for AMADO GARCIA DO ([email or web address]) on 02/17/24 at 15:02. Electronically submitted by Josemanuel Parker ([email or web address]). AMADO GARCIA DO Feb 17, 2024 11:26
[2024-02-17] MEDS: SODIUM CHLORIDE 0.9% 1,000 ML IV ONE (11:52)
[2024-02-17] MEDS: ONDANSETRON HCL 4 MG/2 ML VIAL IV ONE (11:52)
--- NOTE | 2024-02-17 11:56 | DVH ---
CHEST RADIOGRAPH Indication: dizzy weak Technique: Single frontal view of the chest was obtained Comparison: XY CHEST XRAY 1 VIEW on DOS: 06/01/22 FINDINGS: Lines and Tubes: None Lungs: No focal consolidation. Pleura: No effusion. No pneumothorax. Cardiomediastinal contours: Unremarkable Bones: No acute osseous abnormality. IMPRESSION: 1. No acute cardiopulmonary disease.
[2024-02-17 13:01] LABS: Alanine Aminotransferase 17 U/L (7-40); Alkaline Phosphatase 57 U/L (46-116); Anion Gap 8 (5-15); Aspartate Aminotransferase 22 U/L (13-40); BUN/Creatinine Ratio 8.3 (10.0-20.0); Blood Urea Nitrogen 10 mg/dL (9-23); Calcium 9.8 mg/dL (8.7-10.4); Carbon Dioxide 27 mmol/L (20-31); Chloride 106 mmol/L (98-107); Glucose 74 mg/dL (74-106); Potassium 3.8 mmol/L (3.5-5.1); Sodium 141 mmol/L (136-145)
[2024-02-17 13:02] LABS: Albumin 4.5 g/dL (3.2-4.8); Bilirubin, Total 1.3 mg/dL (0.2-1.0); Total Protein 7.3 g/dL (5.7-8.2)
[2024-02-17 13:26] LABS: Basophils # (auto) 0 10 ^3/uL (0-0.2); Basophils % (auto) 0.8 % (0.0-2.0); Eosinophils # (auto) 0.1 10 ^3/uL (0-0.8); Eosinophils % (auto) 0.9 % (0.0-7.0); Hematocrit 44.4 % (41.0-53.0); Hemoglobin 14.7 g/dL (13.5-17.5); Lymphocytes # (auto) 2.5 10 ^3/uL (0.4-5.4); Lymphocytes % (auto) 46.5 % (10.0-50.0); Mean Corpuscular Hgb Conc. 33.1 g/dL (32.0-36.0); Mean Corpuscular Volume 87.6 fL (80.0-100.0); Monocytes # (auto) 0.5 10 ^3/uL (0-1.3); Monocytes % (auto) 8.7 % (0.0-12.0); Neutrophils # (auto) 2.3 10 ^3/uL (1.6-8.6); Neutrophils % (auto) 43.1 % (37.0-80.0); Nucleated Red Blood Cells % 0.2 %; Platelet Count (auto) 226 10^3/uL (140-450); Red Blood Cells 5.07 10^6/uL (4.5-5.90); Red Cell Distribution Width 14.6 % (11.8-14.3); White Blood Cell 5.4 10^3/uL (4.4-10.8)
[2024-02-17 14:00] VITALS: TEMP 98.4
[2024-02-17 16:05] LABS: Urine Blood Negative /uL (Negative); Urine Clarity Clear (Clear); Urine Color Yellow (Yellow); Urine Mucus FEW (None Seen); Urine Protein, UAD 1+ (Negative); Urine Specific Gravity 1.031 (1.001-1.035); Urine Urobilinogen Normal (Negative); Urine WBC 1 /hpf (0 - 3); Urine pH 5.5 (5.0-9.0)
[2024-02-17 16:12] LABS: Amphetamine Screen, Urine Neg (NEGATIVE); Barbiturate Scree,Urine Neg (NEGATIVE); Benzodiazephine Screen, Urine Neg (NEGATIVE); Cocaine Screen, Urine Neg (NEGATIVE)
[2024-02-17 16:13] LABS: Cannabinoid Screen, Urine Neg (NEGATIVE); Opiate Scree,Urine Neg (NEGATIVE); Phencyclidine Screen, Urine Neg (NEGATIVE)
[2024-02-17 16:29] VITALS: BP 140/91; PULSE 77; RESP 18; O2SAT 94
== END 2024-02-17 17:10 | disposition home or self-care (01) ==
LOC: ER 10:46
DX: E11.9 Type 2 diabetes mellitus without complications (principal); I10 Essential (primary) hypertension; Z79.4 Long term (current) use of insulin; Z79.84 Long term (current) use of oral hypoglycemic drugs; Z79.899 Other long term (current) drug therapy
CPT/HCPCS: 36415; 71045; 80053; 80307; 81001; 82962; 83605; 83735; 84484; 85025; 96361; 96374; 99284; J2405; J7030